=== PATIENT | female | born 1950 | race Caucasian/White ===

== ENCOUNTER → 2021-01-12 10:32 | Outpatient (CLI) | payer MEDICARE, SELFPAY ==
[2021-01-12 11:33] LABS: Alanine Aminotransferase 21 IU/L (<35); Albumin 4.3 g/dL (3.5-5.0); Albumin Globulin Ratio 1.4 (1.0-2.8); Alkaline Phosphatase 92 U/L (38-126); Aspartate Aminotransferase 28 IU/L (14-36); BUN Creatinine Ratio 25.7 (6-22); Bilirubin Total 0.3 mg/dL (0.2-1.3); Blood Urea Nitrogen 19 mg/dL (7-17); C-Reactive Protein Quant 1.1 mg/dL (<1.0); Calcium 10.4 mg/dL (8.4-10.2); Carbon Dioxide 27 mmol/L (22-32); Chloride 104 mmol/L (98-107); Cholesterol 176 mg/dL (140-199); Erythrocyte Sedimentation Rate 9 MM/HR (0-20); Estimated Glomerular Filt Rate > 60.0 mL/min (>60); Globulin 3.1 g/dL (1.7-4.1); Glucose 99 mg/dL (80-110); HDL Cholesterol 49 mg/dL (40-60); HEMOLYSIS < 15 (0-50); LDL Cholesterol Calculated 88 mg/dL (<100); Potassium 4.5 mmol/L (3.4-5.1); Sodium 139 mmol/L (137-145); Total Protein 7.4 g/dL (6.3-8.2); Triglycerides 194 mg/dL (35-150)
[2021-01-12 11:59] LABS: Free T4, Direct Thyroxine 0.96 ng/dL (0.78-2.19)
[2021-01-12 12:13] LABS: Thyroid Stimulating Hormone 2.74 uIU/mL (0.47-4.68)
== END ==
PROVIDERS: PCP Internal Medicine; Referring Provider Internal Medicine; Visit Provider Internal Medicine
DX: I10 Essential (primary) hypertension (principal); E04.1 Nontoxic single thyroid nodule; L92.0 Granuloma annulare; N28.1 Cyst of kidney, acquired; Z13.1 Encounter for screening for diabetes mellitus; Z13.220 Encounter for screening for lipoid disorders
CPT/HCPCS: 36415; 80053; 80061; 84439; 84443; 85651; 86140

== ENCOUNTER → 2022-01-31 08:58 | Outpatient (CLI) | payer MEDICARE, SELFPAY ==
--- NOTE | 2022-01-31 08:59 | DI.MG.S_ITS ---
BILATERAL DIGITAL SCREENING MAMMOGRAM 3D/2D WITH CAD: 01/31/2022 CLINICAL: Routine screening. Family history of breast cancer. Comparison is made to exams dated: 08/27/2019 mammogram, 06/14/2017 mammogram, and 06/12/2016 mammogram - out side. There are scattered fibroglandular elements in both breasts. Current study was also evaluated with a Computer Aided Detection (CAD) system. No significant masses, calcifications, or other findings are seen in either breast. There has been no significant interval change. IMPRESSION: NEGATIVE There is no mammographic evidence of malignancy. A 1 year screening mammogram is recommended. This exam was interpreted at Station ID: [id number]. NOTE: For mammograms, a report in lay terms will be sent to the patient. Approximately 15% of breast malignancies will not be visualized mammographically. In the management of a palpable breast mass, a negative mammogram must not discourage biopsy of a clinically suspicious lesion. Electronically Signed By: Candido Guajardo M.D., jr/rose:01/31/2022 11:28:22 letter sent: Normal Exam ACR BI-RADS Category 1: Negative [id number]
== END ==
PROVIDERS: PCP Internal Medicine; Referring Provider Internal Medicine; Visit Provider Internal Medicine
DX: Z12.31 Encounter for screening mammogram for malignant neoplasm of breast (principal); Z80.3 Family history of malignant neoplasm of breast
CPT/HCPCS: 77063; 77067

== ENCOUNTER → 2022-02-02 10:44 | Outpatient (CLI) | payer MEDICARE, SELFPAY ==
[2022-02-03 03:24] LABS: Alanine Aminotransferase 20 IU/L (<35); Albumin 4.5 g/dL (3.5-5.0); Albumin Globulin Ratio 1.6 (1.0-2.8); Alkaline Phosphatase 103 U/L (38-126); Aspartate Aminotransferase 27 IU/L (14-36); Bilirubin Total 0.5 mg/dL (0.2-1.3); Blood Urea Nitrogen 20 mg/dL (7-17); Calcium 10.4 mg/dL (8.4-10.2); Carbon Dioxide 17 mmol/L (22-32); Chloride 112 mmol/L (98-107); Cholesterol 224 mg/dL (140-199); Estimated Glomerular Filt Rate > 60 mL/min (>60); Globulin 2.9 g/dL (1.7-4.1); Glucose 97 mg/dL (80-110); HDL Cholesterol 62 mg/dL (40-60); HEMOLYSIS < 15 (0-50); LDL Cholesterol Calculated 137 mg/dL (<100); Potassium 4.6 mmol/L (3.4-5.1); Sodium 144 mmol/L (137-145); Total Protein 7.4 g/dL (6.3-8.2); Triglycerides 125 mg/dL (35-150)
[2022-02-03 04:54] LABS: Thyroid Stimulating Hormone 1.84 uIU/mL (0.47-4.68)
[2022-02-04 14:40] LABS: C-Reactive Protein Quant 1.5 mg/dL (<1.0)
[2022-02-04 14:56] LABS: Free T4, Direct Thyroxine 1.26 ng/dL (0.78-2.19)
== END ==
PROVIDERS: PCP Internal Medicine; Referring Provider Internal Medicine; Visit Provider Internal Medicine
DX: R31.9 Hematuria, unspecified (principal); E04.1 Nontoxic single thyroid nodule; M85.80 Other specified disorders of bone density and structure, unspecified site; Z13.220 Encounter for screening for lipoid disorders; N28.1 Cyst of kidney, acquired
CPT/HCPCS: 36415; 80053; 80061; 84439; 84443; 86140

== ENCOUNTER → 2022-02-20 08:35 | Outpatient (CLI) | payer MEDICARE, SELFPAY ==
--- NOTE | 2022-02-20 08:36 | DI.US.S_ITS ---
PROCEDURE: US THYROID INDICATIONS: thyroid nodule TECHNIQUE: Real-time scanning was performed of the thyroid gland, with image documentation. COMPARISON: None. FINDINGS: Right: Thyroid lobe measures 4.9 x 2.0 x 2.0 cm, and is homogeneous in echotexture. Left: Thyroid lobe measures 4.4 x 2.0 x 1.5 cm, and is homogenous in echotexture. Isthmus: 19 mm thick. Nodule number: 1 Location: Left superior Size: 0.8 x 0.7 x 0.8 cm. Composition: Solid Echogenicity: Isoechoic Shape: wider than tall. Margins: Smooth Echogenic foci: None Total points: 3 ACR TI-RADS category: 3 Nodule number: 2 Location: Left mid Size: 0.4 x 0.5 x 0.5 cm. Composition: Solid Echogenicity: Isoechoic/hypoechoic Shape: wider than tall. Margins: Smooth Echogenic foci: None Total points: 3 ACR TI-RADS category: 3 Nodule number: 3 Location: Right inferior Size: 1.0 x 0.6 x 0.7 cm. Composition: Solid Echogenicity: Isoechoic Shape: Taller than wide Margins: Ill-defined Echogenic foci: Punctate Total points: 8 ACR TI-RADS category: 5 Nodule number: 4 Location: Right inferior Size: 1.1 x 0.9 x 1.1 cm. Composition: Solid Echogenicity: Isoechoic Shape: wider than tall. Margins: Smooth Echogenic foci: None Total points: 3 ACR TI-RADS category: 2 IMPRESSION: 1. Left subcentimeter T3 thyroid nodules. No further follow-up recommended. 2. Right 1.1 cm T3 thyroid nodule. No further follow-up recommended. 3. Right 1.0 cm T5 thyroid nodule. FNA recommended. ACR TI-RADS definitions and recommendations: TI-RADS 1 (benign): 0 points. FNA not needed. TI-RADS 2 (not suspicious): 2 points. FNA not needed. TI-RADS 3 (mildly suspicious): 3 points. * FNA if 2.5 cm or larger, follow up if 1.5 cm or larger (at 1, 3, and 5 years). TI-RADS 4 (moderately suspicious): 4-6 points. * FNA if 1.5 cm or larger, follow up if 1 cm or larger (at 1, 2, 3, and 5 years). TI-RADS 5 (highly suspicious): 7 points or more. * FNA if 1 cm or larger, follow up if 0.5 cm or larger (every year for 5 years). Dictated by: Madeline Shi M.D. on 02/20/2022 at 11:49 Approved by: Madeline Shi M.D. on 02/20/2022 at 11:54
== END ==
PROVIDERS: PCP Internal Medicine; Referring Provider Internal Medicine; Visit Provider Internal Medicine
DX: E04.2 Nontoxic multinodular goiter (principal)
CPT/HCPCS: 76536

== ENCOUNTER 2022-04-26 10:30 | Outpatient (RCR) | payer MEDICARE, SELFPAY ==
--- NOTE | 2022-03-27 16:33 | PT.OIE ---
Current Diagnoses Other meniscus derangements, unspecified medial meniscus, right knee (03/27/22) Pain in right knee (03/27/22) Pain in unspecified knee (03/27/22) Past Medical History (Last Updated 01/23/21 @ 10:23 by Scott Alfonso MD) Chronic back pain (~1997) Diverticular disease of colon H/O adenomatous polyp of colon Hayfever Hematuria Osteopenia (~2017) Rosacea (~1999) Past Surgical History (Last Reviewed 08/26/20 @ 16:08 by Scott Alfonso MD) Anesthesia History of carpal tunnel release (~1997) History of cataract removal with insertion of prosthetic lens History of removal of cyst History of tonsillectomy History of tubal ligation (~1980) History of vascular surgery Visit Care Team Role Provider Type Scott Alfonso MD Attending Provider Physician Family Provider Primary Care Provider Referring Provider Specialty: Internal Medicine Address: [address] [place] [address], [address], [facility] Email: [email or web address] Physical Therapy Initial Evaluation PT-OP-A Visit Information Start: 03/27/22 16:03 Freq: Status: Active Protocol: Document 03/27/22 14:30 DCW (Rec: 03/27/22 16:15 [facility] [id number]) Out-Patient Physical Therapy Visit Information Visit Information Visit Type Initial Evaluation Visit Start Time 14:30 Visit Stop Time 15:15 Total Visit Minutes 45 Visit Number 1 Number of MIXED ANIMAL VETERINARIAN Visits 0 Evaluation Information Evaluation Date 03/27/22 PT-OP-B Current Condition Start: 03/27/22 16:03 Freq: Status: Active Protocol: Document 03/27/22 14:30 DCW (Rec: 03/27/22 16:15 [facility] [id number]) Current Condition History of Current Condition Onset Date One month Current Complaints Right knee pain History of Current Condition Pt is a 71 year old female presenting with a one month history of right knee pain. Pt reports she caught her foot on an uneven slate tile on her kitchen floor, which twisted my knee cap really bad. Notes that for the following three days, she was unable to put any weight on it, and then for the next week and a half, she was experiencing increased swelling and limping around. Pt then contacted her PCP, and had trouble getting in to see them , so she was just sent over so PT could deal with me. Notes her pain was initially a 10/10, has decreased to a 6-7 /10 now at worst. Has difficulty walking up her driveway to the mailbox, and has her sleep disturbed, because she likes to sleep on her side, which causes pain. Complains that her right knee frequently feels like it is going to give out under her, and admits that trying to pivot on the knee is a real bad move. Treatment Goals Patient/Caregiver Goals I have a very bad back, and this knee has ticked off my back and my hip, so I need something to stabilize my knee that won't bother my back. PT-OP-C Subjective Start: 03/27/22 16:03 Freq: Status: Active Protocol: Document 03/27/22 14:30 DCW (Rec: 03/27/22 16:15 DCW [id number]) OP-PT Subjective Patient Comments Patient Comments My friend is an RN, and she thinks it's my meniscus. Patient Reported Progress Improving Patient Questionnaires Lower Extremity Functional Scale LEFS Score 23/80 = 28.75% LEFS Impairment 60 to 79% Impaired (Score 17- 31) OP-PT Pain Assessment Pain Assessment Grid Paper Pain Assessment Grid Completed Yes Location Right Medial Knee Intensity 7 Scale Used Numeric (0 - 10) Description Sharp,Stabbing,Tender Frequency Frequent PT-OP-F Manual Assessment Start: 03/27/22 16:03 Freq: Status: Active Protocol: Document 03/27/22 14:30 DCW (Rec: 03/27/22 16:20 DCW [id number]) Manual Assessments Joint Mobility Assessment Joint Mobility Assessment Severe point-specific pain along anteriomedial right knee joint line, moderate pain along posteriomedial right knee joint line. PT-OP-K Range of Motion Start: 03/27/22 16:03 Freq: Status: Active Protocol: Document 03/27/22 14:30 DCW (Rec: 03/27/22 16:20 DCW [id number]) Knee Goniometric Range of Motion Knee Right Knee ROM WFL Yes Patient Position Supine Flexion Active (degrees) 120 Extension Active (degrees) 3 Comments Pain with full extension Left Knee ROM WFL Yes Patient Position Supine Flexion Active (degrees) 122 Extension Active (degrees) 0 PT-OP-L Special Tests Start: 03/27/22 16:03 Freq: Status: Active Protocol: Document 03/27/22 14:30 DCW (Rec: 03/27/22 16:20 DCW [id number]) Special Tests Knee Special Tests Varus- 25 Degrees Test Results C/o pain at R medial joint line Valgus- 25 Degrees Test Results Negative Posterior Draw Test Results Negative Trisha Test Test Results Positive Right Bounce Home Test Results Positive Right Apley's Compression Test Results Positive Right Anterior Draw Test Results Negative PT-OP-M Strength Start: 03/27/22 16:03 Freq: Status: Active Protocol: Document 03/27/22 14:30 DCW (Rec: 03/27/22 16:20 DCW [id number]) Knee Strength Knee Manual Muscle Testing Right Flexion (S2) 4- Good- Extension (L3) 4- Good- Comments Complaint of pain with manual resistance Left Flexion (S2) 5 Normal Extension (L3) 5 Normal PT-OP-Q Treatments Start: 03/27/22 16:03 Freq: Status: Active Protocol: Document 03/27/22 14:30 DCW (Rec: 03/27/22 16:15 DCW [id number]) Therapeutic Exercises Sitting Exercises LAQ Sitting Exercise Name LAQ Side bilateral Quad Sets Sitting Exercise Name QS Side right Standing Exercises Marching Standing Exercise Name Standing Marching Side bilateral Hamstring Curls Standing Exercise Name HS curls Side bilateral Other Exercises Sit<->Stand Other Exercise Name Sit<-Stand PT-OP-T Assessment and Plan Start: 03/27/22 16:03 Freq: Status: Active Protocol: Document 03/27/22 14:30 DCW (Rec: 03/27/22 16:32 DC [id number]) Physical Therapy Assessment Rehab Potential Rehabilitation Potential Good Evaluation Complexity Number of Personal Factors/Comorbidities 1-2 Number of Body Systems Impaired 1-2 Clinical Presentation at Evaluation Stable Impairments Impairments Functional Activities, Functional Mobility,Pain,Soft Tissue Mobility,Strength Goals Two Impairment Pt struggles to walk to mailbox due to right knee pain Junior Architect Goal (LTG) Pt to improve tolerance to ambulating uphill for 50 feet without pain in order to improve her ability to get her mail. LTG Duration 05/27/22 One Impairment Pt does not have an appropriate home exercise program Junior Architect Goal (LTG) Pt to be independent and compliant with an appropriate HEP LTG Duration 04/27/22 Assessment Summary Assessment Pt presents with signs and symptoms consistent with right medial meniscus involvement. Special testing all strongly suggestive of a meniscal injury.Pt should benefit from skilled therapeutic intervention including improving strength, stability, and mobility of right knee. If pt does not improve as expected, may benefit from advanced imaging to rule in or out potential tear. Pt appears to be motivated to work hard both in therapy and with an independent HEP. Physical Therapy Plan Frequency and Duration Frequency of Treatment 2x/Week Duration of Treatment Two months Plan of Care Start Date 03/27/22 Plan of Care End Date 05/27/22 Therapeutic Interventions Therapeutic Interventions Aquatic Therapy,Home Exercise Program,Joint Mobilizations, Manual Therapy,Patient/ Caregiver Education,Self-Care/ Home Management,Soft Tissue Mobilization,Therapeutic Activities,Therapeutic Exercises Modalities Cold Pack/Ice Massage,Electric Stimulation,Hot Packs, Ultrasound Next Visit Focus/Plan Next Note Type Treatment Note Next Visit Plan Joint mobilizations, strengthening, joint stabilization
--- NOTE | 2022-03-27 16:33 | PT.OPPOC ---
Physical, Occupational & Speech Therapy At [facility] Current Diagnoses Other meniscus derangements, unspecified medial meniscus, right knee (03/27/22) Pain in right knee (03/27/22) Pain in unspecified knee (03/27/22) Visit Care Team Role Provider Type Scott Alfonso MD Attending Provider Physician Family Provider Primary Care Provider Referring Provider Specialty: Internal Medicine Address: [address] [place] [address], [address], [address] Email: [email or web address] Plan Of Care PT-OP-T Assessment and Plan Start: 03/27/22 16:03 Freq: Status: Active Protocol: Document 03/27/22 14:30 DCW (Rec: 03/27/22 16:32 DCW [id number]) Physical Therapy Assessment Rehab Potential Rehabilitation Potential Good Evaluation Complexity Number of Personal Factors/Comorbidities 1-2 Number of Body Systems Impaired 1-2 Clinical Presentation at Evaluation Stable Impairments Impairments Functional Activities, Functional Mobility,Pain,Soft Tissue Mobility,Strength Goals Two Impairment Pt struggles to walk to mailbox due to right knee pain [facility] Goal (LTG) Pt to improve tolerance to ambulating uphill for 50 feet without pain in order to improve her ability to get her mail. LTG Duration 05/27/22 One Impairment Pt does not have an appropriate home exercise program [facility] Goal (LTG) Pt to be independent and compliant with an appropriate HEP LTG Duration 04/27/22 Assessment Summary Assessment Pt presents with signs and symptoms consistent with right medial meniscus involvement. Special testing all strongly suggestive of a meniscal injury.Pt should benefit from skilled therapeutic intervention including improving strength, stability, and mobility of right knee. If pt does not improve as expected, may benefit from advanced imaging to rule in or out potential tear. Pt appears to be motivated to work hard both in therapy and with an independent HEP. Physical Therapy Plan Frequency and Duration Frequency of Treatment 2x/Week Duration of Treatment Two months Plan of Care Start Date 03/27/22 Plan of Care End Date 05/27/22 Therapeutic Interventions Therapeutic Interventions Aquatic Therapy,Home Exercise Program,Joint Mobilizations, Manual Therapy,Patient/ Caregiver Education,Self-Care/ Home Management,Soft Tissue Mobilization,Therapeutic Activities,Therapeutic Exercises Modalities Cold Pack/Ice Massage,Electric Stimulation,Hot Packs, Ultrasound Next Visit Focus/Plan Next Note Type Treatment Note Next Visit Plan Joint mobilizations, strengthening, joint stabilization Plan of Care Dates Plan of Care Start Date 03/27/22 Plan of Care End Date 05/27/22 Electronically Signed by: Eddie Villalobos, PT 03/27/22 [id number] If you are in agreement with this Plan of Care, please return a signed and dated copy. I have reviewed this Plan of Care and certify that the skilled therapy services above are required to meet the patient?s needs. Physician Signature Date Printed Name and Credentials Clinical Instructor Signature Printed Name and Credentials
--- NOTE | 2022-04-04 18:03 | PT.OTN ---
Current Diagnoses Other meniscus derangements, unspecified medial meniscus, right knee (04/04/22) Pain in right knee (04/04/22) Pain in unspecified knee (04/04/22) Physical Therapy Treatment Note PT-OP-A Visit Information Start: 03/27/22 16:03 Freq: Status: Active Protocol: Document 04/04/22 16:08 [facility] (Rec: 04/04/22 18:03 [facility] [id number]) Out-Patient Physical Therapy Visit Information Visit Information Visit Type Treatment Note Visit Start Time 16:06 Visit Stop Time 16:56 Total Visit Minutes 50 Visit Number 2 Number of MARINE EXTENSION AGENT Visits 0 PT-OP-B Current Condition Start: 03/27/22 16:03 Freq: Status: Active Protocol: Document 03/27/22 14:30 DCW (Rec: 03/27/22 16:15 DCW [id number]) Current Condition History of Current Condition Onset Date One month Current Complaints Right knee pain History of Current Condition Pt is a 71 year old female presenting with a one month history of right knee pain. Pt reports she caught her foot on an uneven slate tile on her kitchen floor, which twisted my knee cap really bad. Notes that for the following three days, she was unable to put any weight on it, and then for the next week and a half, she was experiencing increased swelling and limping around. Pt then contacted her PCP, and had trouble getting in to see them , so she was just sent over so PT could deal with me. Notes her pain was initially a 10/10, has decreased to a 6-7 /10 now at worst. Has difficulty walking up her driveway to the mailbox, and has her sleep disturbed, because she likes to sleep on her side, which causes pain. Complains that her right knee frequently feels like it is going to give out under her, and admits that trying to pivot on the knee is a real bad move. Treatment Goals Patient/Caregiver Goals I have a very bad back, and this knee has ticked off my back and my hip, so I need something to stabilize my knee that won't bother my back. PT-OP-C Subjective Start: 03/27/22 16:03 Freq: Status: Active Protocol: Document 04/04/22 16:08 [facility] (Rec: 04/04/22 18:03 [facility] [id number]) OP-PT Subjective Patient Comments Patient Comments Pt reports the first few days after exercises, she was sore. Pt reports quad set is tough and tends to hurt. She has been doing both legs. Pt reports she feels like a locking feeling almost like you go back and it is either going to give out or just stop . PT-OP-F Manual Assessment Start: 03/27/22 16:03 Freq: Status: Active Protocol: Document 03/27/22 14:30 DCW (Rec: 03/27/22 16:20 DCW [id number]) Manual Assessments Joint Mobility Assessment Joint Mobility Assessment Severe point-specific pain along anteriomedial right knee joint line, moderate pain along posteriomedial right knee joint line. PT-OP-K Range of Motion Start: 03/27/22 16:03 Freq: Status: Active Protocol: Document 03/27/22 14:30 DCW (Rec: 03/27/22 16:20 DCW [id number]) Knee Goniometric Range of Motion Knee Right Knee ROM WFL Yes Patient Position Supine Flexion Active (degrees) 120 Extension Active (degrees) 3 Comments Pain with full extension Left Knee ROM WFL Yes Patient Position Supine Flexion Active (degrees) 122 Extension Active (degrees) 0 PT-OP-L Special Tests Start: 03/27/22 16:03 Freq: Status: Active Protocol: Document 03/27/22 14:30 DCW (Rec: 03/27/22 16:20 DCW [id number]) Special Tests Knee Special Tests Varus- 25 Degrees Test Results C/o pain at R medial joint line Valgus- 25 Degrees Test Results Negative Posterior Draw Test Results Negative Trisha Test Test Results Positive Right Bounce Home Test Results Positive Right Apley's Compression Test Results Positive Right Anterior Draw Test Results Negative PT-OP-M Strength Start: 03/27/22 16:03 Freq: Status: Active Protocol: Document 03/27/22 14:30 DCW (Rec: 03/27/22 16:20 DCW [id number]) Knee Strength Knee Manual Muscle Testing Right Flexion (S2) 4- Good- Extension (L3) 4- Good- Comments Complaint of pain with manual resistance Left Flexion (S2) 5 Normal Extension (L3) 5 Normal PT-OP-Q Treatments Start: 03/27/22 16:03 Freq: Status: Active Protocol: Document 04/04/22 16:08 [facility] (Rec: 04/04/22 18:03 [facility] [id number]) Cardio Equipment Recumbent Elliptical (Biodex) Duration (Minutes) 6 Resistance 3 Seat Position 6 Therapeutic Exercises Supine Exercises quad set Supine Exercise Name into towel Side right Reps/Minutes 5 sec x10 Sitting Exercises LAQ Sitting Exercise Name LAQ Side bilateral Quad Sets Sitting Exercise Name QS Side right Reps/Minutes stopped d/t pain Standing Exercises Marching Standing Exercise Name Standing Marching Side bilateral Hamstring Curls Standing Exercise Name HS curls Side bilateral Other Exercises Sit<->Stand Other Exercise Name Sit<-Stand Comments cues for glute squeeze Manual Therapy Treatment Soft Tissue Mobilization post Body Location R HS, Calf Mobilization Type Rolling Intensity/Depth Superficial Body Position Hooklying Self-Care/Home Management Treatment Education Caregiver Education discussed possible aquatic PT (pt had reported she did pool therapy on back in past and it was helpful and used to work out at pool until she moved here. Discussed w/pt cont to ice when swollen. Edu to use towel or pillow case btwn skin and ice PT-OP-T Assessment and Plan Start: 03/27/22 16:03 Freq: Status: Active Protocol: Document 04/04/22 16:08 [facility] (Rec: 04/04/22 18:03 [facility] [id number]) Physical Therapy Assessment Goals Two Impairment Pt struggles to walk to mailbox due to right knee pain [facility] Goal (LTG) Pt to improve tolerance to ambulating uphill for 50 feet without pain in order to improve her ability to get her mail. LTG Duration 05/27/22 One Impairment Pt does not have an appropriate home exercise program Electric Lift Truck Driver Goal (LTG) Pt to be independent and compliant with an appropriate HEP LTG Duration 04/27/22 Assessment Summary Assessment Pt required cues w/exercises for neutral spine positon & for core engagment or did a lot of leaning and compensation in both seated adn standing exercises. quad set in seated was painful for pt so adjusted to supine w/ towel under w/o pain and encouraged to slowly dec amt of towel under knee. Significant tenderness to L calf and HS and patellar tendon. Pt encouraged to ice after session and at home. Physical Therapy Plan Frequency and Duration Frequency of Treatment 2x/Week Duration of Treatment Two months Plan of Care Start Date 03/27/22 Plan of Care End Date 05/27/22 Next Visit Focus/Plan Next Note Type Treatment Note Next Visit Plan Joint mobilizations, strengthening, joint stabilization
--- NOTE | 2022-04-10 12:46 | PT.OTN ---
Current Diagnoses Other meniscus derangements, unspecified medial meniscus, right knee (04/10/22) Pain in right knee (04/10/22) Pain in unspecified knee (04/10/22) Physical Therapy Treatment Note PT-OP-A Visit Information Start: 03/27/22 16:03 Freq: Status: Active Protocol: Document 04/10/22 12:14 NBM (Rec: 04/10/22 12:45 NBM [id number]) Out-Patient Physical Therapy Visit Information Visit Information Visit Type Treatment Note Visit Start Time 11:22 Visit Stop Time 12:10 Total Visit Minutes 48 Visit Number 3 Number of BOILER RIVETER Visits 1 PT-OP-B Current Condition Start: 03/27/22 16:03 Freq: Status: Active Protocol: Document 03/27/22 14:30 DCW (Rec: 03/27/22 16:15 DCW [id number]) Current Condition History of Current Condition Onset Date One month Current Complaints Right knee pain History of Current Condition Pt is a 71 year old female presenting with a one month history of right knee pain. Pt reports she caught her foot on an uneven slate tile on her kitchen floor, which twisted my knee cap really bad. Notes that for the following three days, she was unable to put any weight on it, and then for the next week and a half, she was experiencing increased swelling and limping around. Pt then contacted her PCP, and had trouble getting in to see them , so she was just sent over so PT could deal with me. Notes her pain was initially a 10/10, has decreased to a 6-7 /10 now at worst. Has difficulty walking up her driveway to the mailbox, and has her sleep disturbed, because she likes to sleep on her side, which causes pain. Complains that her right knee frequently feels like it is going to give out under her, and admits that trying to pivot on the knee is a real bad move. Treatment Goals Patient/Caregiver Goals I have a very bad back, and this knee has ticked off my back and my hip, so I need something to stabilize my knee that won't bother my back. PT-OP-C Subjective Start: 03/27/22 16:03 Freq: Status: Active Protocol: Document 04/10/22 12:14 NBM (Rec: 04/10/22 12:45 NBM [id number]) OP-PT Subjective Patient Comments Patient Comments Pt reports she is not able to get into her boat. She has been doing all of her exercises but some hurt on the inside of both knees. She thinks she compensates because when knee hurts, hip hurts, then back hurts. She had terrible cramp in back a few days ago. She's trying to remember all of the tips she gets from PT like using her core and not leaning to the side. PT-OP-F Manual Assessment Start: 03/27/22 16:03 Freq: Status: Active Protocol: Document 03/27/22 14:30 DCW (Rec: 03/27/22 16:20 DCW [id number]) Manual Assessments Joint Mobility Assessment Joint Mobility Assessment Severe point-specific pain along anteriomedial right knee joint line, moderate pain along posteriomedial right knee joint line. PT-OP-K Range of Motion Start: 03/27/22 16:03 Freq: Status: Active Protocol: Document 03/27/22 14:30 DCW (Rec: 03/27/22 16:20 DCW [id number]) Knee Goniometric Range of Motion Knee Right Knee ROM WFL Yes Patient Position Supine Flexion Active (degrees) 120 Extension Active (degrees) 3 Comments Pain with full extension Left Knee ROM WFL Yes Patient Position Supine Flexion Active (degrees) 122 Extension Active (degrees) 0 PT-OP-L Special Tests Start: 03/27/22 16:03 Freq: Status: Active Protocol: Document 03/27/22 14:30 DCW (Rec: 03/27/22 16:20 DCW [id number]) Special Tests Knee Special Tests Varus- 25 Degrees Test Results C/o pain at R medial joint line Valgus- 25 Degrees Test Results Negative Posterior Draw Test Results Negative Trisha Test Test Results Positive Right Bounce Home Test Results Positive Right Apley's Compression Test Results Positive Right Anterior Draw Test Results Negative PT-OP-M Strength Start: 03/27/22 16:03 Freq: Status: Active Protocol: Document 03/27/22 14:30 DCW (Rec: 03/27/22 16:20 DCW [id number]) Knee Strength Knee Manual Muscle Testing Right Flexion (S2) 4- Good- Extension (L3) 4- Good- Comments Complaint of pain with manual resistance Left Flexion (S2) 5 Normal Extension (L3) 5 Normal PT-OP-Q Treatments Start: 03/27/22 16:03 Freq: Status: Active Protocol: Document 04/10/22 12:14 NBM (Rec: 04/10/22 12:45 [facility] [id number]) Cardio Equipment Recumbent Stepper (Sci-Fit) Duration (Minutes) 6 Resistance 3 Seat Position 9 Other cue for knee alignment Therapeutic Exercises Sitting Exercises HS Stretch Side bilateral Reps/Minutes 2 x 30 LAQ Sitting Exercise Name LAQ Side bilateral Comments toes fwd then towards ceiling Quad Sets Sitting Exercise Name QS Side right Comments painful w/ knee locked, tolerable w/ slight bend. Standing Exercises Kitchen sink Stretch Standing Exercise Name added to HEP Equipment Used rail Reps/Minutes 2 x 60 Comments good feedback response Rhomboid Doorway Stretch Standing Exercise Name added to HEP Reps/Minutes 1 x 30 Comments good feedback response QL Doorway Stretch Standing Exercise Name added to HEP Side bilateral Reps/Minutes 1 x 30 ea Comments good feedback response Marching Standing Exercise Name Standing Marching Side bilateral Equipment Used mirror, mat table for ORNAMENTAL PLASTER STICKER Comments toes fwd, Hamstring Curls Standing Exercise Name HS curls Side bilateral Equipment Used mat table for ORNAMENTAL PLASTER STICKER Comments toes fwd; dc/d d/t R HS cramp Other Exercises Sit<->Stand Other Exercise Name Sit<-Stand Comments cues for glute squeeze, toes fwd to start, controlled descent Self-Care/Home Management Treatment Education Patient Education Home Exercise Program,Safety Caregiver Education Added stretches to HEP: QL Doorway, Rhomboid Doorway, Kitchen Sink - HO given. Discussed hydration for healing d/t pt experiencing R HS cramp when performing standing HS curl bilaterally. Pt acknowledged doesn't drink enough water and drinks a lot of coffee. PT-OP-T Assessment and Plan Start: 03/27/22 16:03 Freq: Status: Active Protocol: Document 04/10/22 12:14 NB (Rec: 04/10/22 12:45 [facility] [id number]) Physical Therapy Assessment Goals Two Impairment Pt struggles to walk to mailbox due to right knee pain Car Detailer Goal (LTG) Pt to improve tolerance to ambulating uphill for 50 feet without pain in order to improve her ability to get her mail. LTG Duration 05/27/22 One Impairment Pt does not have an appropriate home exercise program Retirement Goal (LTG) Pt to be independent and compliant with an appropriate HEP LTG Duration 04/27/22 Assessment Summary Assessment Pt performs exercises w/ hip external rotation which improves w/ verbal cueing for toes forward and visual feedback w/ mirror. Pt tolerates HEP review w/focus on neutral foot positioning, which improved lateral weightshifting and medial knee pain. Pt's HEP updated w/ cues for mirror and toes forward. Seated quad set very painful on R knee but pt able to perform in two parts: cueing not to lock knee completely, and focus on pulling toes up for HS stretch . Decreased palpable tension to R HS post manual therapy. Added stretches to HEP: QL Doorway, Rhomboid Doorway, Kitchen Sink - HO given. Physical Therapy Plan Next Visit Focus/Plan Next Note Type Treatment Note Next Visit Plan Reassess supine vs seated quad sets. Progress POC. POC: Joint mobilizations, strengthening, joint stabilization
--- NOTE | 2022-04-12 15:16 | PT.OTN ---
Current Diagnoses Other meniscus derangements, unspecified medial meniscus, right knee (04/12/22) Pain in right knee (04/12/22) Pain in unspecified knee (04/12/22) Physical Therapy Treatment Note PT-OP-A Visit Information Start: 03/27/22 16:03 Freq: Status: Active Protocol: Document 04/12/22 14:32 DCW (Rec: 04/12/22 15:16 DCW [id number]) Out-Patient Physical Therapy Visit Information Visit Information Visit Type Treatment Note Visit Start Time 14:32 Visit Stop Time 15:15 Total Visit Minutes 43 Visit Number 4 Number of HEALTH CENTER ASSOCIATE Visits 0 Evaluation Information Evaluation Date 03/27/22 PT-OP-B Current Condition Start: 03/27/22 16:03 Freq: Status: Active Protocol: Document 03/27/22 14:30 DCW (Rec: 03/27/22 16:15 DCW [id number]) Current Condition History of Current Condition Onset Date One month Current Complaints Right knee pain History of Current Condition Pt is a 71 year old female presenting with a one month history of right knee pain. Pt reports she caught her foot on an uneven slate tile on her kitchen floor, which twisted my knee cap really bad. Notes that for the following three days, she was unable to put any weight on it, and then for the next week and a half, she was experiencing increased swelling and limping around. Pt then contacted her PCP, and had trouble getting in to see them , so she was just sent over so PT could deal with me. Notes her pain was initially a 10/10, has decreased to a 6-7 /10 now at worst. Has difficulty walking up her driveway to the mailbox, and has her sleep disturbed, because she likes to sleep on her side, which causes pain. Complains that her right knee frequently feels like it is going to give out under her, and admits that trying to pivot on the knee is a real bad move. Treatment Goals Patient/Caregiver Goals I have a very bad back, and this knee has ticked off my back and my hip, so I need something to stabilize my knee that won't bother my back. PT-OP-C Subjective Start: 03/27/22 16:03 Freq: Status: Active Protocol: Document 04/12/22 14:32 DCW (Rec: 04/12/22 15:16 DCW [id number]) OP-PT Subjective Patient Comments Patient Comments It's doing a little better, I think. Does note that if she walks more than 50-60 feet, she's still getting soreness. PT-OP-F Manual Assessment Start: 03/27/22 16:03 Freq: Status: Active Protocol: Document 03/27/22 14:30 DCW (Rec: 03/27/22 16:20 DCW [id number]) Manual Assessments Joint Mobility Assessment Joint Mobility Assessment Severe point-specific pain along anteriomedial right knee joint line, moderate pain along posteriomedial right knee joint line. PT-OP-K Range of Motion Start: 03/27/22 16:03 Freq: Status: Active Protocol: Document 03/27/22 14:30 DCW (Rec: 03/27/22 16:20 DCW [id number]) Knee Goniometric Range of Motion Knee Right Knee ROM WFL Yes Patient Position Supine Flexion Active (degrees) 120 Extension Active (degrees) 3 Comments Pain with full extension Left Knee ROM WFL Yes Patient Position Supine Flexion Active (degrees) 122 Extension Active (degrees) 0 PT-OP-L Special Tests Start: 03/27/22 16:03 Freq: Status: Active Protocol: Document 03/27/22 14:30 DCW (Rec: 03/27/22 16:20 DCW [id number]) Special Tests Knee Special Tests Varus- 25 Degrees Test Results C/o pain at R medial joint line Valgus- 25 Degrees Test Results Negative Posterior Draw Test Results Negative Trisha Test Test Results Positive Right Bounce Home Test Results Positive Right Apley's Compression Test Results Positive Right Anterior Draw Test Results Negative PT-OP-M Strength Start: 03/27/22 16:03 Freq: Status: Active Protocol: Document 03/27/22 14:30 DCW (Rec: 03/27/22 16:20 DCW [id number]) Knee Strength Knee Manual Muscle Testing Right Flexion (S2) 4- Good- Extension (L3) 4- Good- Comments Complaint of pain with manual resistance Left Flexion (S2) 5 Normal Extension (L3) 5 Normal PT-OP-Q Treatments Start: 03/27/22 16:03 Freq: Status: Active Protocol: Document 04/12/22 14:32 DCW (Rec: 04/12/22 15:16 [facility] [id number]) Cardio Equipment Recumbent Elliptical (Biodex) Duration (Minutes) 6 Resistance 4 Seat Position 8 Therapeutic Exercises Supine Exercises SLR Supine Exercise Name SLR /c ER Bridging Supine Exercise Name Bridging /c Add ball squeeze Sidelying Exercises Hip Adduction Sidelying Exercise Name Adduction Side bilateral Clamshells Sidelying Exercise Name Clamshell Side bilateral Sitting Exercises LAQ Sitting Exercise Name LAQ Side bilateral Reps/Minutes x15 Standing Exercises Step-up Standing Exercise Name Step-up Side bilateral Equipment Used 6 step Other Exercises Resisted Ambulation Other Exercise Name Resisted side-stepping Resistance Red Sit<->Stand Other Exercise Name Sit<-Stand Comments cues for glute squeeze, toes fwd to start, controlled descent PT-OP-T Assessment and Plan Start: 03/27/22 16:03 Freq: Status: Active Protocol: Document 04/12/22 14:32 [facility] (Rec: 04/12/22 15:16 [facility] [id number]) Physical Therapy Assessment Goals Two Impairment Pt struggles to walk to mailbox due to right knee pain Hematology Supervisor Goal (LTG) Pt to improve tolerance to ambulating uphill for 50 feet without pain in order to improve her ability to get her mail. LTG Duration 05/27/22 One Impairment Pt does not have an appropriate home exercise program Hematology Supervisor Goal (LTG) Pt to be independent and compliant with an appropriate HEP LTG Duration 04/27/22 Assessment Summary Assessment Pt showing some improvement with knee extension, not having as much pain with ROM and ambulation. Increased difficulty of TherEx today, pt noted no increased pain during session, instructed pt to let therapist know next time if today was too much activity. Physical Therapy Plan Frequency and Duration Frequency of Treatment 2x/Week Duration of Treatment Two months Plan of Care Start Date 03/27/22 Plan of Care End Date 05/27/22 Next Visit Focus/Plan Next Note Type Treatment Note Next Visit Plan Advance resistance as tolerated, continue to focus on knee strength and stability . Joint mobilizations, strengthening, joint stabilization
--- NOTE | 2022-04-16 14:17 | PT.OTN ---
Current Diagnoses Other meniscus derangements, unspecified medial meniscus, right knee (04/16/22) Pain in right knee (04/16/22) Pain in unspecified knee (04/16/22) Physical Therapy Treatment Note PT-OP-A Visit Information Start: 03/27/22 16:03 Freq: Status: Active Protocol: Document 04/16/22 14:03 LJ (Rec: 04/16/22 14:17 LJ [id number]) Out-Patient Physical Therapy Visit Information Visit Information Visit Type Treatment Note Visit Start Time 09:00 Visit Stop Time 09:44 Total Visit Minutes 44 Visit Number 5 Number of TAB CARD PRESS OPERATOR Visits 1 Evaluation Information Evaluation Date 03/27/22 PT-OP-B Current Condition Start: 03/27/22 16:03 Freq: Status: Active Protocol: Document 03/27/22 14:30 DCW (Rec: 03/27/22 16:15 DCW [id number]) Current Condition History of Current Condition Onset Date One month Current Complaints Right knee pain History of Current Condition Pt is a 71 year old female presenting with a one month history of right knee pain. Pt reports she caught her foot on an uneven slate tile on her kitchen floor, which twisted my knee cap really bad. Notes that for the following three days, she was unable to put any weight on it, and then for the next week and a half, she was experiencing increased swelling and limping around. Pt then contacted her PCP, and had trouble getting in to see them , so she was just sent over so PT could deal with me. Notes her pain was initially a 10/10, has decreased to a 6-7 /10 now at worst. Has difficulty walking up her driveway to the mailbox, and has her sleep disturbed, because she likes to sleep on her side, which causes pain. Complains that her right knee frequently feels like it is going to give out under her, and admits that trying to pivot on the knee is a real bad move. Treatment Goals Patient/Caregiver Goals I have a very bad back, and this knee has ticked off my back and my hip, so I need something to stabilize my knee that won't bother my back. PT-OP-C Subjective Start: 03/27/22 16:03 Freq: Status: Active Protocol: Document 04/16/22 14:03 LJ (Rec: 04/16/22 14:17 LJ [id number]) OP-PT Subjective Patient Comments Patient Comments Pt reports being very sore after last session. States her back was painful for 2 days. PT-OP-F Manual Assessment Start: 03/27/22 16:03 Freq: Status: Active Protocol: Document 03/27/22 14:30 DCW (Rec: 03/27/22 16:20 DCW [id number]) Manual Assessments Joint Mobility Assessment Joint Mobility Assessment Severe point-specific pain along anteriomedial right knee joint line, moderate pain along posteriomedial right knee joint line. PT-OP-K Range of Motion Start: 03/27/22 16:03 Freq: Status: Active Protocol: Document 03/27/22 14:30 DCW (Rec: 03/27/22 16:20 DCW [id number]) Knee Goniometric Range of Motion Knee Right Knee ROM WFL Yes Patient Position Supine Flexion Active (degrees) 120 Extension Active (degrees) 3 Comments Pain with full extension Left Knee ROM WFL Yes Patient Position Supine Flexion Active (degrees) 122 Extension Active (degrees) 0 PT-OP-L Special Tests Start: 03/27/22 16:03 Freq: Status: Active Protocol: Document 03/27/22 14:30 DCW (Rec: 03/27/22 16:20 DCW [id number]) Special Tests Knee Special Tests Varus- 25 Degrees Test Results C/o pain at R medial joint line Valgus- 25 Degrees Test Results Negative Posterior Draw Test Results Negative Trisha Test Test Results Positive Right Bounce Home Test Results Positive Right Apley's Compression Test Results Positive Right Anterior Draw Test Results Negative PT-OP-M Strength Start: 03/27/22 16:03 Freq: Status: Active Protocol: Document 03/27/22 14:30 DCW (Rec: 03/27/22 16:20 DCW [id number]) Knee Strength Knee Manual Muscle Testing Right Flexion (S2) 4- Good- Extension (L3) 4- Good- Comments Complaint of pain with manual resistance Left Flexion (S2) 5 Normal Extension (L3) 5 Normal PT-OP-Q Treatments Start: 03/27/22 16:03 Freq: Status: Active Protocol: Document 04/16/22 14:03 LJ (Rec: 04/16/22 14:17 LJ [id number]) Cardio Equipment Recumbent Elliptical (Biodex) Duration (Minutes) 8 Resistance 4 Seat Position 8 Therapeutic Exercises Supine Exercises HS stretch Side right Reps/Minutes 2x20 Comments LE supported by therapist SLR Supine Exercise Name SLR /c ER Comments cue for TrA and pelvic floor quad set Supine Exercise Name into towel Side right Reps/Minutes 5 sec x10 Comments TrA cueing Sidelying Exercises Clamshells Sidelying Exercise Name Clamshell Side bilateral Comments cue for forward pelvis Sitting Exercises seated marching Reps/Minutes 2 x 20 Comments emph posture and core LAQ Sitting Exercise Name LAQ Side bilateral Reps/Minutes x15 Quad Sets Sitting Exercise Name QS Side right Reps/Minutes 8 B Standing Exercises Hip ABD Equipment Used mat table for BRANCH MAKER Reps/Minutes 10 B Comments cue for core involvement Step-up Standing Exercise Name Step-up Side bilateral Equipment Used 6 step Reps/Minutes x8 Comments cue for glute tightening prior to ascent Kitchen sink Stretch Standing Exercise Name added to HEP Equipment Used rail Reps/Minutes 2 x 60 Comments good feedback response Rhomboid Doorway Stretch Standing Exercise Name added to HEP Reps/Minutes 1 x 30 Comments good feedback response Self-Care/Home Management Treatment Education Caregiver Education Added hip ABD at counter PT-OP-T Assessment and Plan Start: 03/27/22 16:03 Freq: Status: Active Protocol: Document 04/16/22 14:03 BRIANNA (Rec: 04/16/22 14:17 BRIANNA [id number]) Physical Therapy Assessment Goals Two Impairment Pt struggles to walk to mailbox due to right knee pain Computer Systems Manager Goal (LTG) Pt to improve tolerance to ambulating uphill for 50 feet without pain in order to improve her ability to get her mail. LTG Duration 05/27/22 One Impairment Pt does not have an appropriate home exercise program Computer Systems Manager Goal (LTG) Pt to be independent and compliant with an appropriate HEP LTG Duration 04/27/22 Assessment Summary Assessment Pt decreased level of exercise this session and was able to do all exercises painfree. She was good about voicing limits to exercises and was able to adjust accordingly. Educated about core involvement and breathing with exercises. Physical Therapy Plan Frequency and Duration Frequency of Treatment 2x/Week Duration of Treatment Two months Plan of Care Start Date 03/27/22 Plan of Care End Date 05/27/22 Next Visit Focus/Plan Next Note Type Treatment Note Next Visit Plan Advance resistance as tolerated, continue to focus on knee strength and stability . Joint mobilizations, strengthening, joint stabilization
--- NOTE | 2022-04-18 09:48 | PT.OTN ---
Current Diagnoses Other meniscus derangements, unspecified medial meniscus, right knee (04/18/22) Pain in right knee (04/18/22) Pain in unspecified knee (04/18/22) Physical Therapy Treatment Note PT-OP-A Visit Information Start: 03/27/22 16:03 Freq: Status: Active Protocol: Document 04/18/22 09:05 SP (Rec: 04/18/22 09:48 SP [id number]) Out-Patient Physical Therapy Visit Information Visit Information Visit Type Treatment Note Visit Start Time 09:05 Visit Stop Time 09:48 Total Visit Minutes 43 Visit Number 6 Number of STUNNER AND SHACKLER Visits 2 PT-OP-B Current Condition Start: 03/27/22 16:03 Freq: Status: Active Protocol: Document 03/27/22 14:30 DCW (Rec: 03/27/22 16:15 DCW [id number]) Current Condition History of Current Condition Onset Date One month Current Complaints Right knee pain History of Current Condition Pt is a 71 year old female presenting with a one month history of right knee pain. Pt reports she caught her foot on an uneven slate tile on her kitchen floor, which twisted my knee cap really bad. Notes that for the following three days, she was unable to put any weight on it, and then for the next week and a half, she was experiencing increased swelling and limping around. Pt then contacted her PCP, and had trouble getting in to see them , so she was just sent over so PT could deal with me. Notes her pain was initially a 10/10, has decreased to a 6-7 /10 now at worst. Has difficulty walking up her driveway to the mailbox, and has her sleep disturbed, because she likes to sleep on her side, which causes pain. Complains that her right knee frequently feels like it is going to give out under her, and admits that trying to pivot on the knee is a real bad move. Treatment Goals Patient/Caregiver Goals I have a very bad back, and this knee has ticked off my back and my hip, so I need something to stabilize my knee that won't bother my back. PT-OP-C Subjective Start: 03/27/22 16:03 Freq: Status: Active Protocol: Document 04/18/22 09:05 SP (Rec: 04/18/22 09:48 SP [id number]) OP-PT Subjective Patient Comments Patient Comments Pt reports was better after last tx. Still has swelling R medial knee but better and utilizing CP helpful. She didn 't have pain only muscle soreness after last tx. She states doesn't do SLR, hip adduction due to pain and to weak to complete at this time. She stated standing hip abd, clamshell, LAQ, step ups are doing well with. PT-OP-F Manual Assessment Start: 03/27/22 16:03 Freq: Status: Active Protocol: Document 03/27/22 14:30 DCW (Rec: 03/27/22 16:20 DCW [id number]) Manual Assessments Joint Mobility Assessment Joint Mobility Assessment Severe point-specific pain along anteriomedial right knee joint line, moderate pain along posteriomedial right knee joint line. PT-OP-K Range of Motion Start: 03/27/22 16:03 Freq: Status: Active Protocol: Document 03/27/22 14:30 DCW (Rec: 03/27/22 16:20 DCW [id number]) Knee Goniometric Range of Motion Knee Right Knee ROM WFL Yes Patient Position Supine Flexion Active (degrees) 120 Extension Active (degrees) 3 Comments Pain with full extension Left Knee ROM WFL Yes Patient Position Supine Flexion Active (degrees) 122 Extension Active (degrees) 0 PT-OP-L Special Tests Start: 03/27/22 16:03 Freq: Status: Active Protocol: Document 03/27/22 14:30 DCW (Rec: 03/27/22 16:20 DCW [id number]) Special Tests Knee Special Tests Varus- 25 Degrees Test Results C/o pain at R medial joint line Valgus- 25 Degrees Test Results Negative Posterior Draw Test Results Negative Trisha Test Test Results Positive Right Bounce Home Test Results Positive Right Apley's Compression Test Results Positive Right Anterior Draw Test Results Negative PT-OP-M Strength Start: 03/27/22 16:03 Freq: Status: Active Protocol: Document 03/27/22 14:30 DCW (Rec: 03/27/22 16:20 DCW [id number]) Knee Strength Knee Manual Muscle Testing Right Flexion (S2) 4- Good- Extension (L3) 4- Good- Comments Complaint of pain with manual resistance Left Flexion (S2) 5 Normal Extension (L3) 5 Normal PT-OP-Q Treatments Start: 03/27/22 16:03 Freq: Status: Active Protocol: Document 04/18/22 09:05 SP (Rec: 04/18/22 09:48 SP [id number]) Cardio Equipment Recumbent Elliptical (Biodex) Duration (Minutes) 8 Resistance 4 Seat Position 8 Other LEs only Therapeutic Exercises Supine Exercises SLR Supine Exercise Name SLR /c ER Side right Reps/Minutes 2 sec hold 10 Comments cue for TrA and pelvic floo, relax jaw/neck/scap complex Bridging Supine Exercise Name Bridging /c Add rolled towel squeeze Reps/Minutes 2 s hold x10 Comments cued glut and core fac, neutral pelvis quad set Supine Exercise Name into towel Side right Reps/Minutes 5 sec x10 Comments TrA cue/quad and not over recruit whole body Sidelying Exercises Hip Adduction Sidelying Exercise Name Adduction Side bilateral Comments reports painful at home so stopped Sitting Exercises HS curl Sitting Exercise Name added HEP Side right Resistance TB #2 loop anchored therapist (door home) Reps/Minutes x10 HS Stretch Sitting Exercise Name HEP review Side bilateral Reps/Minutes 2 x 30 Comments good posterior chain stretch LAQ Sitting Exercise Name LAQ Side bilateral Reps/Minutes 2s hold x15 Comments not end range stress, mid quad fac effort Standing Exercises calf raises Standing Exercise Name added to HEP Side bilateral Resistance AROM Equipment Used contact table Reps/Minutes x10 Comments good feedback response, soft knee Hip ABD Standing Exercise Name HEP reviewed Resistance AROM Equipment Used table contact Reps/Minutes 10 B Comments cue for core involvement Other Exercises Sit<->Stand Other Exercise Name Sit<-Stand- HEP review Reps/Minutes x5 reps cued arms across chest Comments cues for glute squeeze, toes fwd to start, controlled descent PT-OP-T Assessment and Plan Start: 03/27/22 16:03 Freq: Status: Active Protocol: Document 04/18/22 09:05 SP (Rec: 04/18/22 09:48 SP [id number]) Physical Therapy Assessment Goals Two Impairment Pt struggles to walk to mailbox due to right knee pain Residential Goal (LTG) Pt to improve tolerance to ambulating uphill for 50 feet without pain in order to improve her ability to get her mail. LTG Duration 05/27/22 One Impairment Pt does not have an appropriate home exercise program [employer] Clerk Goal (LTG) Pt to be independent and compliant with an appropriate HEP LTG Duration 04/27/22 Assessment Summary Assessment Pt responds well to HEP review , cued mid quad and TA facilitation to decrease LB recruitment supine and hip abd standing. Initiated post chain strengthening support no hyperextension pain in R knee states experiences when walking, R knee felt more supportive end tx with added HS curls, calf raises. Physical Therapy Plan Frequency and Duration Frequency of Treatment 2x/Week Duration of Treatment Two months Plan of Care Start Date 03/27/22 Plan of Care End Date 05/27/22 Therapeutic Interventions Therapeutic Interventions Aquatic Therapy,Home Exercise Program,Joint Mobilizations, Manual Therapy,Patient/ Caregiver Education,Self-Care/ Home Management,Soft Tissue Mobilization,Therapeutic Activities,Therapeutic Exercises Modalities Cold Pack/Ice Massage,Electric Stimulation,Hot Packs, Ultrasound Next Visit Focus/Plan Next Note Type Treatment Note Next Visit Plan Recheck HS curl TB and calf raises added last and if ok to reintroduce band walk next tx . POC: Advance resistance as tolerated, continue to focus on knee strength and stability . Joint mobilizations, strengthening, joint stabilization
--- NOTE | 2022-04-24 11:14 | PT.OTN ---
Current Diagnoses Other meniscus derangements, unspecified medial meniscus, right knee (04/24/22) Pain in right knee (04/24/22) Pain in unspecified knee (04/24/22) Physical Therapy Treatment Note PT-OP-A Visit Information Start: 03/27/22 16:03 Freq: Status: Active Protocol: Document 04/24/22 10:30 DCW (Rec: 04/24/22 11:14 DCW [id number]) Out-Patient Physical Therapy Visit Information Visit Information Visit Type Treatment Note Visit Start Time 10:30 Visit Stop Time 11:15 Total Visit Minutes 45 Visit Number 7 Number of ASSISTANT STORE MANAGER SALES Visits 0 Evaluation Information Evaluation Date 03/27/22 PT-OP-B Current Condition Start: 03/27/22 16:03 Freq: Status: Active Protocol: Document 03/27/22 14:30 DCW (Rec: 03/27/22 16:15 DCW [id number]) Current Condition History of Current Condition Onset Date One month Current Complaints Right knee pain History of Current Condition Pt is a 71 year old female presenting with a one month history of right knee pain. Pt reports she caught her foot on an uneven slate tile on her kitchen floor, which twisted my knee cap really bad. Notes that for the following three days, she was unable to put any weight on it, and then for the next week and a half, she was experiencing increased swelling and limping around. Pt then contacted her PCP, and had trouble getting in to see them , so she was just sent over so PT could deal with me. Notes her pain was initially a 10/10, has decreased to a 6-7 /10 now at worst. Has difficulty walking up her driveway to the mailbox, and has her sleep disturbed, because she likes to sleep on her side, which causes pain. Complains that her right knee frequently feels like it is going to give out under her, and admits that trying to pivot on the knee is a real bad move. Treatment Goals Patient/Caregiver Goals I have a very bad back, and this knee has ticked off my back and my hip, so I need something to stabilize my knee that won't bother my back. PT-OP-C Subjective Start: 03/27/22 16:03 Freq: Status: Active Protocol: Document 04/24/22 10:30 DCW (Rec: 04/24/22 11:14 DCW [id number]) OP-PT Subjective Patient Comments Patient Comments Pt noting continued edema in medial right knee, worried since it has been nearly eight weeks since injury. PT-OP-F Manual Assessment Start: 03/27/22 16:03 Freq: Status: Active Protocol: Document 03/27/22 14:30 DCW (Rec: 03/27/22 16:20 DCW [id number]) Manual Assessments Joint Mobility Assessment Joint Mobility Assessment Severe point-specific pain along anteriomedial right knee joint line, moderate pain along posteriomedial right knee joint line. PT-OP-K Range of Motion Start: 03/27/22 16:03 Freq: Status: Active Protocol: Document 03/27/22 14:30 DCW (Rec: 03/27/22 16:20 DCW [id number]) Knee Goniometric Range of Motion Knee Right Knee ROM WFL Yes Patient Position Supine Flexion Active (degrees) 120 Extension Active (degrees) 3 Comments Pain with full extension Left Knee ROM WFL Yes Patient Position Supine Flexion Active (degrees) 122 Extension Active (degrees) 0 PT-OP-L Special Tests Start: 03/27/22 16:03 Freq: Status: Active Protocol: Document 03/27/22 14:30 DCW (Rec: 03/27/22 16:20 DCW [id number]) Special Tests Knee Special Tests Varus- 25 Degrees Test Results C/o pain at R medial joint line Valgus- 25 Degrees Test Results Negative Posterior Draw Test Results Negative Trisha Test Test Results Positive Right Bounce Home Test Results Positive Right Apley's Compression Test Results Positive Right Anterior Draw Test Results Negative PT-OP-M Strength Start: 03/27/22 16:03 Freq: Status: Active Protocol: Document 03/27/22 14:30 DCW (Rec: 03/27/22 16:20 DCW [id number]) Knee Strength Knee Manual Muscle Testing Right Flexion (S2) 4- Good- Extension (L3) 4- Good- Comments Complaint of pain with manual resistance Left Flexion (S2) 5 Normal Extension (L3) 5 Normal PT-OP-Q Treatments Start: 03/27/22 16:03 Freq: Status: Active Protocol: Document 04/24/22 10:30 DCW (Rec: 04/24/22 11:14 DCW [id number]) Cardio Equipment Recumbent Bicycle Duration (Minutes) 3 Resistance 3 Other c/o medial R knee discomfort Gym Equipment Shuttle Recovery Bilateral Heel Raises Resistance 62# Unilateral Squats Resistance 37# Shuttle Recovery Platform Stable Bilateral Squats Resistance 62# Shuttle Recovery Platform Stable Therapeutic Exercises Sitting Exercises HS curl Sitting Exercise Name HS Curl Side bilateral Resistance TB #2 loop anchored therapist (door home) Reps/Minutes x10 LAQ Sitting Exercise Name LAQ Side bilateral Reps/Minutes 2s hold x15 Comments not end range stress, mid quad fac effort Other Exercises Resisted Ambulation Other Exercise Name Resisted side-stepping Resistance Red Manual Therapy Treatment Joint Mobilizations Knee Joint R knee Direction P->A Grade III PT-OP-T Assessment and Plan Start: 03/27/22 16:03 Freq: Status: Active Protocol: Document 04/24/22 10:30 DCW (Rec: 04/24/22 11:14 [facility] [id number]) Physical Therapy Assessment Goals Two Impairment Pt struggles to walk to mailbox due to right knee pain Assisted Goal (LTG) Pt to improve tolerance to ambulating uphill for 50 feet without pain in order to improve her ability to get her mail. LTG Duration 05/27/22 One Impairment Pt does not have an appropriate home exercise program Assisted Goal (LTG) Pt to be independent and compliant with an appropriate HEP LTG Duration 04/27/22 Assessment Summary Assessment Pt had a few complaints of discomfort in her knee today, but overall was very happy with her function, feels it is improving. Pt should benefit next visit from full review of HEP due to upcoming break in her schedule. Physical Therapy Plan Frequency and Duration Frequency of Treatment 2x/Week Duration of Treatment Two months Plan of Care Start Date 03/27/22 Plan of Care End Date 05/27/22 Therapeutic Interventions Therapeutic Interventions Aquatic Therapy,Home Exercise Program,Joint Mobilizations, Manual Therapy,Patient/ Caregiver Education,Self-Care/ Home Management,Soft Tissue Mobilization,Therapeutic Activities,Therapeutic Exercises Modalities Cold Pack/Ice Massage,Electric Stimulation,Hot Packs, Ultrasound Next Visit Focus/Plan Next Note Type Treatment Note Next Visit Plan Review HEP for upcoming break from PT POC: Advance resistance as tolerated, continue to focus on knee strength and stability . Joint mobilizations, strengthening, joint stabilization
--- NOTE | 2022-04-26 11:13 | PT.OTN ---
Current Diagnoses Other meniscus derangements, unspecified medial meniscus, right knee (04/26/22) Pain in right knee (04/26/22) Pain in unspecified knee (04/26/22) Physical Therapy Treatment Note PT-OP-A Visit Information Start: 03/27/22 16:03 Freq: Status: Active Protocol: Document 04/26/22 10:30 DCW (Rec: 04/26/22 11:13 DCW [id number]) Out-Patient Physical Therapy Visit Information Visit Information Visit Type Treatment Note Visit Start Time 10:30 Visit Stop Time 11:15 Total Visit Minutes 45 Visit Number 8 Number of IN PROCESSING INSTRUCTOR Visits 0 Evaluation Information Evaluation Date 03/27/22 PT-OP-B Current Condition Start: 03/27/22 16:03 Freq: Status: Active Protocol: Document 03/27/22 14:30 DCW (Rec: 03/27/22 16:15 DCW [id number]) Current Condition History of Current Condition Onset Date One month Current Complaints Right knee pain History of Current Condition Pt is a 71 year old female presenting with a one month history of right knee pain. Pt reports she caught her foot on an uneven slate tile on her kitchen floor, which twisted my knee cap really bad. Notes that for the following three days, she was unable to put any weight on it, and then for the next week and a half, she was experiencing increased swelling and limping around. Pt then contacted her PCP, and had trouble getting in to see them , so she was just sent over so PT could deal with me. Notes her pain was initially a 10/10, has decreased to a 6-7 /10 now at worst. Has difficulty walking up her driveway to the mailbox, and has her sleep disturbed, because she likes to sleep on her side, which causes pain. Complains that her right knee frequently feels like it is going to give out under her, and admits that trying to pivot on the knee is a real bad move. Treatment Goals Patient/Caregiver Goals I have a very bad back, and this knee has ticked off my back and my hip, so I need something to stabilize my knee that won't bother my back. PT-OP-C Subjective Start: 03/27/22 16:03 Freq: Status: Active Protocol: Document 04/26/22 10:30 DCW (Rec: 04/26/22 11:13 DCW [id number]) OP-PT Subjective Patient Comments Patient Comments It was really achy last night , I carmen know what I did, after I did my exercises last night, we went for a walk around [facility], and I think it was just too much. PT-OP-F Manual Assessment Start: 03/27/22 16:03 Freq: Status: Active Protocol: Document 03/27/22 14:30 DCW (Rec: 03/27/22 16:20 DCW [id number]) Manual Assessments Joint Mobility Assessment Joint Mobility Assessment Severe point-specific pain along anteriomedial right knee joint line, moderate pain along posteriomedial right knee joint line. PT-OP-K Range of Motion Start: 03/27/22 16:03 Freq: Status: Active Protocol: Document 03/27/22 14:30 DCW (Rec: 03/27/22 16:20 DCW [id number]) Knee Goniometric Range of Motion Knee Right Knee ROM WFL Yes Patient Position Supine Flexion Active (degrees) 120 Extension Active (degrees) 3 Comments Pain with full extension Left Knee ROM WFL Yes Patient Position Supine Flexion Active (degrees) 122 Extension Active (degrees) 0 PT-OP-L Special Tests Start: 03/27/22 16:03 Freq: Status: Active Protocol: Document 03/27/22 14:30 DCW (Rec: 03/27/22 16:20 DCW [id number]) Special Tests Knee Special Tests Varus- 25 Degrees Test Results C/o pain at R medial joint line Valgus- 25 Degrees Test Results Negative Posterior Draw Test Results Negative Trisha Test Test Results Positive Right Bounce Home Test Results Positive Right Apley's Compression Test Results Positive Right Anterior Draw Test Results Negative PT-OP-M Strength Start: 03/27/22 16:03 Freq: Status: Active Protocol: Document 03/27/22 14:30 DCW (Rec: 03/27/22 16:20 DCW [id number]) Knee Strength Knee Manual Muscle Testing Right Flexion (S2) 4- Good- Extension (L3) 4- Good- Comments Complaint of pain with manual resistance Left Flexion (S2) 5 Normal Extension (L3) 5 Normal PT-OP-Q Treatments Start: 03/27/22 16:03 Freq: Status: Active Protocol: Document 04/26/22 10:30 DCW (Rec: 04/26/22 11:13 DCW [id number]) Cardio Equipment Recumbent Elliptical (Biodex) Duration (Minutes) 8 Resistance 4 Seat Position 8 Gym Equipment Shuttle Recovery Bilateral Heel Raises Resistance 62# Unilateral Squats Resistance 37# Shuttle Recovery Platform Stable Bilateral Squats Resistance 62# Shuttle Recovery Platform Stable Therapeutic Exercises Supine Exercises HS stretch Side bilateral Reps/Minutes 2x20 Comments LE supported by therapist SLR Supine Exercise Name SLR /c ER Side bilateral Reps/Minutes 2 sec hold 10 Comments cue for TrA and pelvic floor, relax jaw/neck/scap complex Bridging Supine Exercise Name Bridging /c Add rolled towel squeeze Reps/Minutes 2 s hold x10 Comments cued glut and core fac, neutral pelvis quad set Supine Exercise Name into towel Side right Reps/Minutes 5 sec x10 Comments TrA cue/quad and not over recruit whole body Sitting Exercises HS curl Sitting Exercise Name HS Curl Side bilateral Resistance TB #3 Reps/Minutes x10 LAQ Sitting Exercise Name LAQ Side bilateral Resistance 2# Reps/Minutes 2s hold x15 Comments not end range stress, mid quad fac effort Other Exercises Resisted Ambulation Other Exercise Name Resisted side-stepping Resistance Red PT-OP-T Assessment and Plan Start: 03/27/22 16:03 Freq: Status: Active Protocol: Document 04/26/22 10:30 DCW (Rec: 04/26/22 11:13 [facility] [id number]) Physical Therapy Assessment Goals Two Impairment Pt struggles to walk to mailbox due to right knee pain Senior Living Goal (LTG) Pt to improve tolerance to ambulating uphill for 50 feet without pain in order to improve her ability to get her mail. LTG Duration 05/27/22 One Impairment Pt does not have an appropriate home exercise program Senior Living Goal (LTG) Pt to be independent and compliant with an appropriate HEP LTG Duration 04/27/22 Assessment Summary Assessment Pt tolerated treatment better today, no rest breaks, no complaints of discomfort. Physical Therapy Plan Frequency and Duration Frequency of Treatment 2x/Week Duration of Treatment Two months Plan of Care Start Date 03/27/22 Plan of Care End Date 05/27/22 Therapeutic Interventions Therapeutic Interventions Aquatic Therapy,Home Exercise Program,Joint Mobilizations, Manual Therapy,Patient/ Caregiver Education,Self-Care/ Home Management,Soft Tissue Mobilization,Therapeutic Activities,Therapeutic Exercises Modalities Cold Pack/Ice Massage,Electric Stimulation,Hot Packs, Ultrasound Next Visit Focus/Plan Next Note Type Treatment Note Next Visit Plan POC: Advance resistance as tolerated, continue to focus on knee strength and stability . Joint mobilizations, strengthening, joint stabilization
--- NOTE | 2022-05-28 11:30 | PT.OPDS ---
Current Diagnoses Other meniscus derangements, unspecified medial meniscus, right knee (04/26/22) Pain in right knee (04/26/22) Pain in unspecified knee (04/26/22) Visit Care Team Role Provider Type Scott Alfonso MD Attending Provider Physician Family Provider Primary Care Provider Referring Provider Specialty: Internal Medicine Address: [address] [place] [address], [address], [facility] Email: [email or web address] Visit Number Visit Number 8 Discharge Summary PT-OP-B Current Condition Start: 03/27/22 16:03 Freq: Status: Active Protocol: Document 03/27/22 14:30 DCW (Rec: 03/27/22 16:15 DCW [id number]) Current Condition History of Current Condition Onset Date One month Current Complaints Right knee pain History of Current Condition Pt is a 71 year old female presenting with a one month history of right knee pain. Pt reports she caught her foot on an uneven slate tile on her kitchen floor, which twisted my knee cap really bad. Notes that for the following three days, she was unable to put any weight on it, and then for the next week and a half, she was experiencing increased swelling and limping around. Pt then contacted her PCP, and had trouble getting in to see them , so she was just sent over so PT could deal with me. Notes her pain was initially a 10/10, has decreased to a 6-7 /10 now at worst. Has difficulty walking up her driveway to the mailbox, and has her sleep disturbed, because she likes to sleep on her side, which causes pain. Complains that her right knee frequently feels like it is going to give out under her, and admits that trying to pivot on the knee is a real bad move. Treatment Goals Patient/Caregiver Goals I have a very bad back, and this knee has ticked off my back and my hip, so I need something to stabilize my knee that won't bother my back. PT-OP-C Subjective Start: 03/27/22 16:03 Freq: Status: Active Protocol: Document 04/26/22 10:30 DCW (Rec: 04/26/22 11:13 DCW [id number]) OP-PT Subjective Patient Comments Patient Comments It was really achy last night , I carmen know what I did, after I did my exercises last night, we went for a walk around [facility], and I think it was just too much. PT-OP-F Manual Assessment Start: 03/27/22 16:03 Freq: Status: Active Protocol: Document 03/27/22 14:30 DCW (Rec: 03/27/22 16:20 DCW [id number]) Manual Assessments Joint Mobility Assessment Joint Mobility Assessment Severe point-specific pain along anteriomedial right knee joint line, moderate pain along posteriomedial right knee joint line. PT-OP-K Range of Motion Start: 03/27/22 16:03 Freq: Status: Active Protocol: Document 03/27/22 14:30 DCW (Rec: 03/27/22 16:20 DCW [id number]) Knee Goniometric Range of Motion Knee Right Knee ROM WFL Yes Patient Position Supine Flexion Active (degrees) 120 Extension Active (degrees) 3 Comments Pain with full extension Left Knee ROM WFL Yes Patient Position Supine Flexion Active (degrees) 122 Extension Active (degrees) 0 PT-OP-L Special Tests Start: 03/27/22 16:03 Freq: Status: Active Protocol: Document 03/27/22 14:30 DCW (Rec: 03/27/22 16:20 DCW [id number]) Special Tests Knee Special Tests Varus- 25 Degrees Test Results C/o pain at R medial joint line Valgus- 25 Degrees Test Results Negative Posterior Draw Test Results Negative Trisha Test Test Results Positive Right Bounce Home Test Results Positive Right Apley's Compression Test Results Positive Right Anterior Draw Test Results Negative PT-OP-M Strength Start: 03/27/22 16:03 Freq: Status: Active Protocol: Document 03/27/22 14:30 DCW (Rec: 03/27/22 16:20 DCW [id number]) Knee Strength Knee Manual Muscle Testing Right Flexion (S2) 4- Good- Extension (L3) 4- Good- Comments Complaint of pain with manual resistance Left Flexion (S2) 5 Normal Extension (L3) 5 Normal PT-OP-T Assessment and Plan Start: 03/27/22 16:03 Freq: Status: Active Protocol: Document 05/28/22 11:29 DCW (Rec: 05/28/22 11:30 DCW [id number]) Physical Therapy Assessment Assessment Summary Assessment Pt phoned clinic, canceled of all appointments and requested discharge. Would like to follow-up with PCP prior to continuing PT. Aware she will need a new referral. Physical Therapy Plan Discharge Physical Therapy Discharge Reasons Patient Request
== END 2022-05-29 12:03 | disposition home or self-care (01) ==
LOC: PHYS 10:30
PROVIDERS: Family Provider Internal Medicine; PCP Internal Medicine; Referring Provider Internal Medicine; Visit Provider Internal Medicine
DX: M25.561 Pain in right knee (principal); M23.303 Other meniscus derangements, unspecified medial meniscus, right knee; M25.569 Pain in unspecified knee
CPT/HCPCS: 97110; 97140; 97161

== ENCOUNTER → 2023-02-06 10:51 | Outpatient (CLI) | payer MEDICARE, SELFPAY ==
[2023-02-06 13:34] LABS: Alanine Aminotransferase 34 IU/L (<35); Albumin 4.2 g/dL (3.5-5.0); Albumin Globulin Ratio 1.4 (1.0-2.8); Alkaline Phosphatase 101 U/L (38-126); Aspartate Aminotransferase 31 IU/L (14-36); Bilirubin Total 0.3 mg/dL (0.2-1.3); Blood Urea Nitrogen 20 mg/dL (7-17); Calcium 9.9 mg/dL (8.4-10.2); Carbon Dioxide 27 mmol/L (22-32); Chloride 104 mmol/L (98-107); Estimated Glomerular Filt Rate > 60 mL/min (>60); Glucose 88 mg/dL (80-110); HEMOLYSIS < 15 (0-50); Potassium 3.9 mmol/L (3.4-5.1); Sodium 138 mmol/L (137-145); Total Protein 7.2 g/dL (6.3-8.2)
== END ==
PROVIDERS: Family Provider Internal Medicine; PCP Internal Medicine; Referring Provider Internal Medicine; Visit Provider Internal Medicine
DX: E04.1 Nontoxic single thyroid nodule (principal); G89.29 Other chronic pain; R31.1 Benign essential microscopic hematuria; Z79.899 Other long term (current) drug therapy; M54.50 Low back pain, unspecified
CPT/HCPCS: 36415; 80053; 84443

== ENCOUNTER → 2023-10-28 07:56 | Outpatient (CLI) | payer MEDICARE, SELFPAY ==
--- NOTE | 2023-10-28 07:57 | DI.MG.S_ITS ---
BILATERAL DIGITAL SCREENING MAMMOGRAM 3D/2D WITH CAD: 10/28/2023 CLINICAL: Routine screening. Family history of breast cancer. Comparison is made to exams dated: 01/31/2022 mammogram - [facility], 08/27/2019 mammogram, and 06/14/2017 mammogram - out side. There are scattered areas of fibroglandular density in both breasts (category b / 25%-50% glandular tissue). Current study was also evaluated with a Computer Aided Detection (CAD) system. No significant masses, calcifications, or other findings are seen in either breast. There has been no significant interval change. IMPRESSION: NEGATIVE There is no mammographic evidence of malignancy. A 1 year screening mammogram is recommended. Based on the Tyrer Cuzick model (a risk assessment model) the patient's lifetime risk is 7.4% and her 10 year risk is 6.0%. According to the ACR, ACS, and NCCN guidelines, an annual breast MRI exam along with mammogram is recommended if the patient's lifetime risk is 20% or greater. This exam was interpreted at Station ID: [id number]. NOTE: For mammograms, a report in lay terms will be sent to the patient. Approximately 15% of breast malignancies will not be visualized mammographically. In the management of a palpable breast mass, a negative mammogram must not discourage biopsy of a clinically suspicious lesion. Electronically Signed By: Madeline ortega/rose:10/28/2023 12:25:50 letter sent: Normal Exam ACR BI-RADS Category 1: Negative [id number]
== END ==
LOC: MAMMO 07:57
PROVIDERS: Family Provider Internal Medicine; PCP Internal Medicine; Referring Provider Internal Medicine; Visit Provider Internal Medicine
DX: Z12.31 Encounter for screening mammogram for malignant neoplasm of breast (principal); Z80.3 Family history of malignant neoplasm of breast; R92.323 Mammographic fibroglandular density, bilateral breasts
CPT/HCPCS: 77063; 77067

== ENCOUNTER → 2023-11-22 11:25 | Outpatient (CLI) | payer MEDICARE, SELFPAY ==
[2023-11-22 12:39] LABS: Add Manual Diff / Slide Review NO; Basophils Absolute Auto 100 /uL (0-100); Basophils Percent Auto 0.6 % (0-2); Eosinophils Absolute Auto 400 /uL (0-450); Eosinophils Percent Auto 3.6 % (2-4); Hematocrit 44.1 % (36-46); Lymphocytes Absolute Auto 2700 /uL (1100-4500); Lymphocytes Percent Auto 27.1 % (25-40); Mean Corpuscular HGB Conc 34.1 % (30-36); Mean Corpuscular Hemoglobin 30.2 PG (26-34); Mean Corpuscular Volume 88.8 fL (80-100); Monocytes Absolute Auto 600 /uL (0-900); Monocytes Percent Auto 6.1 % (3-14); Neutrophils Absolute Auto 6200 /uL (1500-7000); Neutrophils Percent Auto 62.6 % (50-75); Platelet Count 367 X10^3/uL (150-400); Red Blood Cell Count 4.97 X10^6/uL (4.0-5.2); White Blood Cell Count 9.8 X10^3/uL (4.5-11.0)
[2023-11-22 13:27] LABS: Alanine Aminotransferase 27 IU/L (<35); Albumin 4.2 g/dL (3.5-5.0); Albumin Globulin Ratio 1.4 (1.0-2.8); Alkaline Phosphatase 107 U/L (38-126); Aspartate Aminotransferase 30 IU/L (14-36); BUN Creatinine Ratio 28.9 (6-22); Bilirubin Total 0.6 mg/dL (0.2-1.3); Blood Urea Nitrogen 22 mg/dL (7-17); C-Reactive Protein Quant 2.1 mg/dL (<1.0); Calcium 10.3 mg/dL (8.4-10.2); Carbon Dioxide 27 mmol/L (22-32); Chloride 106 mmol/L (98-107); Creatine Kinase 49 U/L (30-135); Estimated Glomerular Filt Rate > 60 mL/min (>60); Globulin 3.1 g/dL (1.7-4.1); Glucose 94 mg/dL (80-110); HEMOLYSIS < 15 (0-50); Magnesium 2.1 mg/dL (1.6-2.3); Potassium 4.5 mmol/L (3.4-5.1); Sodium 141 mmol/L (137-145); Total Protein 7.3 g/dL (6.3-8.2)
[2023-11-22 13:39] LABS: Free T4, Direct Thyroxine 1.09 ng/dL (0.78-2.19)
[2023-11-22 13:53] LABS: Thyroid Stimulating Hormone 2.04 uIU/mL (0.47-4.68)
[2023-11-22 21:20] LABS: Erythrocyte Sedimentation Rate 8 MM/HR (0-20)
[2023-11-27 16:08] LABS: ANA Screen, IFA Negative (.)
== END ==
PROVIDERS: Family Provider Internal Medicine; PCP Internal Medicine; Referring Provider Internal Medicine; Visit Provider Internal Medicine
DX: E04.1 Nontoxic single thyroid nodule (principal); D64.9 Anemia, unspecified; M79.10 Myalgia, unspecified site
CPT/HCPCS: 36415; 80053; 82550; 83735; 84439; 84443; 85025; 85651; 86038; 86140

== ENCOUNTER → 2024-01-16 07:12 | Outpatient (CLI) | payer MEDICARE, SELFPAY ==
[2024-01-16 08:57] LABS: Appearance Urine UA CLEAR; Bilirubin Urine UA NEGATIVE (NEGATIVE); Color Urine UA YELLOW; Glucose Urine UA NEGATIVE (Negative); Ketones Urine UA NEGATIVE (NEGATIVE); Leukocyte Esterase Urine UA TRACE (NEGATIVE); Nitrite Urine UA NEGATIVE (Negative); Occult Blood Urine UA TRACE-INTACT (Negative); Protein Urine UA NEGATIVE (Negative); Urobilinogen Urine UA 0.2 E.U./dL (0.2)
[2024-01-16 08:58] LABS: Urine Volume 10mL (spun); pH Urine UA 5.5 (4.5-8.0)
[2024-01-16 09:00] LABS: Bacteria Urine None Seen; Culture Indicated Urine Specimen Cultured; RBC Urine 0-1/HPF (0-5/HPF); Squamous Epithelial Cell Urine None Seen (0-5/HPF); WBC Urine 0-1/HPF (0-5/HPF)
== END ==
LOC: LAB 07:12
PROVIDERS: Family Provider Internal Medicine; PCP Internal Medicine; Referring Provider Internal Medicine; Visit Provider Internal Medicine
DX: R39.9 Unspecified symptoms and signs involving the genitourinary system (principal)
CPT/HCPCS: 81001; 87086

== ENCOUNTER → 2024-01-23 11:51 | Outpatient (CLI) | payer MEDICARE, SELFPAY ==
[2024-01-23 12:32] LABS: Appearance Urine UA CLEAR; Bilirubin Urine UA NEGATIVE (NEGATIVE); Color Urine UA YELLOW; Glucose Urine UA NEGATIVE (Negative); Ketones Urine UA NEGATIVE (NEGATIVE); Leukocyte Esterase Urine UA TRACE (NEGATIVE); Nitrite Urine UA NEGATIVE (Negative); Occult Blood Urine UA 2+ (Negative); Protein Urine UA NEGATIVE (Negative); Specific Gravity Urine UA <=1.005 (1.000-1.035); Urobilinogen Urine UA 0.2 E.U./dL (0.2)
[2024-01-23 12:55] LABS: pH Urine UA 6.5 (4.5-8.0)
[2024-01-23 12:58] LABS: Bacteria Urine None Seen; Culture Indicated Urine Cult Not Indicated; RBC Urine 1-5/HPF (0-5/HPF); Squamous Epithelial Cell Urine 1-5 /HPF (0-5/HPF); Urine Volume 10mL (spun); WBC Urine 1-5/HPF (0-5/HPF)
== END ==
PROVIDERS: Family Provider Internal Medicine; PCP Internal Medicine; Referring Provider Internal Medicine; Visit Provider Internal Medicine
DX: N32.89 Other specified disorders of bladder (principal)
CPT/HCPCS: 81001

== ENCOUNTER → 2024-03-02 16:17 | Outpatient (CLI) | payer MEDICARE, SELFPAY ==
[2024-03-02 17:20] LABS: Calcium 9.6 mg/dL (8.4-10.2); HEMOLYSIS < 15 (0-50); Potassium 4.1 mmol/L (3.4-5.1); Sodium 140 mmol/L (137-145)
[2024-03-02 17:21] LABS: BUN Creatinine Ratio 23.1 (6-22); Blood Urea Nitrogen 18 mg/dL (7-17); Carbon Dioxide 24 mmol/L (22-32); Chloride 110 mmol/L (98-107); Estimated Glomerular Filt Rate > 60 mL/min (>60); Glucose 95 mg/dL (80-110)
== END ==
PROVIDERS: Family Provider Internal Medicine; PCP Internal Medicine; Referring Provider Urology; Visit Provider Urology
DX: R31.9 Hematuria, unspecified (principal)
CPT/HCPCS: 80048

== ENCOUNTER → 2024-03-20 08:42 | Outpatient (CLI) | payer MEDICARE, SELFPAY ==
--- NOTE | 2024-03-20 08:42 | DI.CT.S_ITS ---
PROCEDURE: CT IVP A/P W/WO INDICATIONS: MICROSCOPIC HEMATURIA / LOWER ABDOMINAL PAIN TECHNIQUE: Optional 5 mm thick noncontrast images acquired from the diaphragm to the symphysis pubis. After the administration of intravenous contrast, 5 mm thick images acquired from the diaphragm to the symphysis pubis after a 10-minute delay. 2 mm thick coronal and sagittal reformats were then performed of the kidneys and ureters. For radiation dose reduction, the following was used: automated exposure control, adjustment of mA and/or kV according to patient size. COMPARISON: None. FINDINGS: Image quality: Diagnostic Lower chest: Basal atelectasis. Small hiatal hernia. Normal heart size. Liver: Hepatic steatosis Probable areas of fatty sparing around the gallbladder fossa, though not confirmed on this study. Gallbladder and biliary system: Unremarkable, nondilated Pancreas: No ductal dilation Spleen: Nonenlarged Adrenals: No discrete nodule Kidneys: No solid renal mass. There are subcentimeter lesions are too small to characterize, usually cysts. A simple appearing 6 centimeters cyst is seen in the posterior right kidney. No calcified obstructing stones. No hydronephrosis. No definite ureter filling defects. Vessels and lymph nodes: The main portal vein is patent. No abdominal aortic aneurysm or pathologic nodes by size criteria. Bowel and peritoneum: There is moderate wall thickening of the sigmoid colon measuring 5 centimeters in length. Numerous diverticula. No small bowel obstruction. No pathologic ascites or drainable abscess Body wall: Small fat containing periumbilical hernia, containing also a small amount of fluid. Pelvis: Bladder is unremarkable. Possible focal endometrial thickening at 6 millimeters. Bones: No acute or suspicious osseous finding. There are degenerative changes. IMPRESSION: No solid renal mass. No obstructing calcified stone. The lower tracts could be evaluated with cystoscopy in the setting of hematuria. Moderate focal wall thickening of the sigmoid colon, numerous diverticula. This may represent acute on chronic diverticular disease. Underlying adenocarcinoma is possible. Colonoscopy correlation is suggested. *This was marked as a result for follow-up in PACS. Other findings as above Dictated by: Rashi Hastings M.D. on 03/20/2024 at 14:11 Approved by: Rashi Hastings M.D. on 03/20/2024 at 14:17
== END ==
LOC: CT 08:42
PROVIDERS: Family Provider Internal Medicine; PCP Internal Medicine; Referring Provider Urology; Visit Provider Urology
DX: N28.1 Cyst of kidney, acquired (principal); R31.9 Hematuria, unspecified; K76.0 Fatty (change of) liver, not elsewhere classified; K57.30 Diverticulosis of large intestine without perforation or abscess without bleeding; K42.9 Umbilical hernia without obstruction or gangrene; K44.9 Diaphragmatic hernia without obstruction or gangrene; R10.30 Lower abdominal pain, unspecified
CPT/HCPCS: 74178; Q9967

== ENCOUNTER → 2024-05-04 07:26 | Outpatient (CLI) | payer MEDICARE, SELFPAY ==
--- NOTE | 2024-05-04 07:27 | DI.US.S_ITS ---
PROCEDURE: US PELVIC COMPLETE INDICATIONS: POSSIBLE ENDOMETRIAL THICKENING ON CT TECHNIQUE: Real-time scanning was performed of the pelvic organs, with image documentation. Additional endovaginal scanning was necessary due to incomplete visualization of the adnexal and endometrial structures by transabdominal scanning. COMPARISON: None. FINDINGS: Uterus: Uterus is retroverted and normal in size at 6.5 x 3.0 x 4.8 cm. The myometrium is homogeneous. The endometrium measures 3.6 mm combined thickness. Note is made of a 7 x 2 x 5 millimeter polyp. A 1 cc simple appearing region of fluid along the canal. Ovaries: Not seen Other: No pathologic free abdominal or pelvic fluid. IMPRESSION: 1. Fluid in the endometrial canal and an approximately 7 millimeter soft tissue lesion which could represent a polyp. Recommend gynecology consult. 2. Nonvisualized ovaries We strive to produce accurate, complete, and clear reports of imaging services. To assist us in improving patient care, this report was composed using standard report templates and voice recognition software. Therefore, it may contain abnormal punctuation, insertions and/or omissions. Occasional wrong-word or sound-alike substitutions may occur. Though we review the report and make efforts to correct it, we do recommend that the report be read carefully in proper context to recognize any text inaccuracies. Dictated by: Lucio Holley M.D. on 05/04/2024 at 16:11 Approved by: Lucio Holley M.D. on 05/04/2024 at 16:17
== END ==
PROVIDERS: Family Provider Internal Medicine; PCP Internal Medicine; Referring Provider Obstetrics & Gynecology; Visit Provider Obstetrics & Gynecology
DX: R93.89 Abnormal findings on diagnostic imaging of other specified body structures (principal)
CPT/HCPCS: 76830; 76856

== ENCOUNTER 2024-05-15 13:09 | Day surgery (SDC) | payer MEDICARE, SELFPAY ==
--- NOTE | 2024-05-15 | PATH_ITS ---
[facility] Accession Number: [id number] No. of containers..02 Tissue . 01 Material submitted: . PART A: colon - SIGMOID COLON POLYP PART B: colon - SIGMOID COLON BIOPSY . 01 Diagnosis: A. SIGMOID COLON POLYP: Hyperplastic polyp. . B. SIGMOID COLON, BIOPSY: Colonic mucosa with no diagnostic abnormality. Negative for active, chronic, and microscopic colitis. Negative for dysplasia and malignancy. . MRV 05/19/2024 1546 Local . 01 Electronically signed: . Ron Boo MD, PhD, Pathologist NPI- [id number] . 01 Gross description: . A. Received in formalin with two patient identifiers and sigmoid colon polyp, is a single rollins to brown soft tissue fragment, 0.5 cm in greatest dimension. Submitted in A1. B. Received in formalin with two patient identifiers and sigmoid colon biopsy, are three rollins soft tissue fragments, 0.3 to 0.4 cm in greatest dimension. Submitted in B1. ([id number]) /MRV 05/18/2024 0740 Local . 01 Pathologist provided ICD-10: K63.5 . 01 CPT . 445790, 398006 Specimen Comment: A courtesy copy of this report has been sent to [phone] Performed at: [address] [facility] [address], [place], [place] [id number] MD Des Corado MD Phone: [phone]
[2024-05-15] MEDS: LACTATED RINGERS 1,000 ML 84 ML IV ×2 (13:39→14:36)
[2024-05-15 13:44] VITALS: BP 148/80; PULSE 89; RESP 16; TEMP 36.6; O2SAT 100
--- NOTE | 2024-05-15 14:28 | PM.HP.1 ---
History of Present Illness History of Present Illness Date Patient Seen: 05/15/24 Time Patient Seen: 14:28 Chief complaint: Colonoscopy Narrative: 73F here for diagnostic colonoscopy. Sigmoid wall thickening incidentally noted on recent CT. Has known diverticular disease with intermittent LLQ cramping. Last C scope 7-8 yrs ago. [facility] Medical History Colonic thickening Thickened endometrium Renal cyst, right History of tobacco use Asymptomatic microscopic hematuria Lower abdominal pain Hematuria H/O adenomatous polyp of colon Diverticular disease of colon Hayfever Granuloma annulare Rosacea (~1999) Osteopenia (~2017) Chronic back pain (~1997) Tinnitus Hearing loss Kidney cysts GERD (gastroesophageal reflux disease) Thyroid nodule Surgical History Anesthesia History of removal of cyst History of vascular surgery History of cataract removal with insertion of prosthetic lens History of tonsillectomy History of tubal ligation (~1980) History of carpal tunnel release (~1997) Family History Mother Diabetes mellitus History of heart disease Brother Cancer Social History Smoking Status: Former smoker alcohol intake: current Meds Home Medications and Allergies Home Medications Medication Instructions Recorded Confirmed Type Vitamin B 1 tab PO DAILY 08/26/20 05/08/24 History biotin 5 mg capsule 5 mg PO DAILY 08/26/20 05/08/24 History cholecalciferol (vitamin D3) 25 25 mcg PO DAILY 08/26/20 05/08/24 History mcg (1,000 unit) capsule multivitamin 1 tab PO DAILY 08/26/20 05/08/24 History quinine sulfate 1 cap PO .PRN 08/26/20 05/08/24 History furosemide 20 mg tablet 20 mg PO DAILY PRN edema #90 tabs 02/12/23 05/08/24 Rx famotidine 40 mg tablet 40 mg PO DAILY #90 tabs 03/29/23 05/08/24 Rx magnesium 1 tab PO DAILY 11/22/23 05/08/24 History omeprazole 40 mg capsule,delayed 40 mg PO DAILY #90 caps 01/30/24 05/08/24 Rx release tramadol 50 mg tablet 50 mg PO TID PRN pain #90 tabs 02/14/24 05/08/24 Rx sodium,potassium,mag sulfates 17.5 See Rx Instructions PO .COMPLEX 04/24/24 05/08/24 Rx gram-3.13 gram-1.6 gram oral soln #354 mL (Suprep Bowel Prep Kit) Allergies Allergy/AdvReac Type Severity Reaction Status Date / Time No Known Drug Allergies Allergy Verified 05/15/24 13:40 cat hair/dander Allergy Intermediate Acts like Uncoded 05/15/24 13:40 she gets a cold, eyes watery, flushed skin. Exam Vital Signs (past 8 hours): - 05/15/24 13:44 Temperature 97.9 F Pulse Rate 89 Respiratory Rate 16 Blood Pressure 148/80 H Pulse Oximetry 100 Oxygen Delivery Method Room Air Oxygen Delivery Method Room Air Narrative Exam Narrative: General adult woman alert oriented no acute distress Chest nonlabored respiration Extremities warm well perfused Assessment & Plan Assessment and plan (1) Colonic thickening: Status: Acute Assessment & Plan narrative: Diagnostic colonoscopy recommended. Technical details were discussed. Risks, benefits, alternatives explained. Risks including but not limited to myocardial infarction, aspiration, bleeding, pain, missed lesion, incomplete examination, need for further radiographic studies, intestinal injury, and need for major abdominal surgery were discussed. All questions were answered to their satisfaction, and they are in agreement with this plan. Time-Based Coding :: [TOTAL MINUTES] spent with patient and on the chart (including review of chart, obtaining history, exam, reviewing outside data, placing orders, documenting exam and treatment plan, and counseling patient) on [DATE].
[2024-05-15 15:03] VITALS: BP 151/78; PULSE 83; RESP 15; TEMP 36.1; O2SAT 97
[2024-05-15 15:08] VITALS: BP 142/76; PULSE 82; RESP 18; O2SAT 94
--- NOTE | 2024-05-15 15:08 | P.OP.COLON_ITS ---
Operative Date/Time/Diagnoses Date of procedure: 05/15/24 Time of procedure: 15:08 Pre-op diagnosis: Abnormal colonic imaging Post-op diagnosis: other (Colitis) Procedure & Clinicians Study performed: Diagnostic colonoscopy Same procedure as scheduled: Yes Indications: 73-year-old woman with abnormally thickened sigmoid colon noted on imaging referred for diagnostic colonoscopy Surgeon: Lux Hernandez Procedure Notes Procedure in detail: The history and physical was performed/updated and the patient is ASA class is 2. The procedure was discussed in detail with the patient. Potential risks complications including infection, bleeding, missed diagnosis, perforation, need for surgery, and were explained. Their questions were answered and informed consent was obtained. Patient was brought to the procedure room and placed standard monitoring equipment. The patient's vital signs were monitored continuously throughout the entire procedure. Prior to starting time-out was performed. The patient was placed in the left lateral recumbent position. Procedural sedation was administered by anesthesia. Examination began with a thorough inspection of the perianal area there was no evidence of fissures, fistulae, external hemorrhoids or cutaneous malignancy. The colonoscopy scope was then placed into the anal canal and was advanced to the cecum, which was identified by the ileocecal valve, the appendiceal orifice and the confluence of the taenia. The scope was then slowly withdrawn examining colon thoroughly in all directions, irrigating it of any residual stool. The scope was retroflexed within the rectum The patient tolerated the procedure well. They will be discharged once criteria are met. The prep was of good/excellent quality. The withdrawl time was 20 minutes. FINDINGS * 8 mm polyp within the sigmoid colon removed with cold snare. The area adjacent to the polyp was tattooed * Moderate colitis within the sigmoid colon. Multiple biopsies were performed with forceps. * Diverticulosis of distal colon. Specimen(s): other (Sigmoid polyp, sigmoid colon biopsy) Impression: Colitis colonic polyp Post-procedure Recommendations: High fiber diet Plan for aftercare: We will notify with biopsy results Disposition: same day surgery
[2024-05-15 15:14] VITALS: BP 148/80; PULSE 80; RESP 18; O2SAT 97
[2024-05-15 15:19] VITALS: BP 137/79; PULSE 90; RESP 20; TEMP 36.7; O2SAT 97
== END 2024-05-15 15:31 | disposition home or self-care (01) ==
PROVIDERS: Family Provider Internal Medicine; PCP Internal Medicine; Referring Provider Surgery; Visit Provider Surgery
PROC: 0DJD8ZZ Inspection of Lower Intestinal Tract, Via Natural or Artificial Opening Endoscopic (ICD-10-PCS; CPT 45378; principal; 2024-05-15 14:15)
DX: K52.9 Noninfective gastroenteritis and colitis, unspecified (principal); K57.30 Diverticulosis of large intestine without perforation or abscess without bleeding; K63.5 Polyp of colon
CPT/HCPCS: 45385; 45380; 45381; J2704

== ENCOUNTER → 2025-07-20 08:53 | Outpatient (CLI) | payer MEDICARE, SELFPAY ==
[2025-07-20 10:32] LABS: Alanine Aminotransferase 21 IU/L (<35); Albumin 4.1 g/dL (3.5-5.0); Albumin Globulin Ratio 1.5 (1.0-2.8); Alkaline Phosphatase 92 U/L (38-126); Blood Urea Nitrogen 19 mg/dL (7-17); Calcium 10.6 mg/dL (8.4-10.2); Carbon Dioxide 26 mmol/L (22-32); Chloride 107 mmol/L (98-107); Cholesterol 200 mg/dL (140-199); Estimated Glomerular Filt Rate > 60 mL/min (>60); Globulin 2.8 g/dL (1.7-4.1); Glucose 102 mg/dL (70-99); HDL Cholesterol 57 mg/dL (40-60); HEMOLYSIS < 15 (0-50); Potassium 4.0 mmol/L (3.4-5.1); Sodium 141 mmol/L (137-145); Total Protein 6.9 g/dL (6.3-8.2); Triglycerides 156 mg/dL (35-150)
[2025-07-20 11:04] LABS: TSH w/ Reflex to FT4 2.41 uIU/mL (0.47-4.68)
== END ==
PROVIDERS: Family Provider Internal Medicine; PCP Internal Medicine; Referring Provider Internal Medicine; Visit Provider Internal Medicine
DX: E78.5 Hyperlipidemia, unspecified (principal); E04.1 Nontoxic single thyroid nodule; K21.9 Gastro-esophageal reflux disease without esophagitis
CPT/HCPCS: 36415; 80053; 80061; 84443